=== PATIENT | male | born 1985 | race Two or more races ===

== ENCOUNTER 2017-03-13 14:53 | Emergency (ER) | payer MEDICAID ==
[~2017-03-13] VITALS: Ht 175.3 cm; Wt 81.6 kg
[2017-03-13 16:32] VITALS: BP 126/70
== END 2017-03-13 16:34 | disposition home or self-care (01) ==
LOC: ER 14:57
DX: S51.812A Laceration without foreign body of left forearm, initial encounter (principal); W22.8XXA Striking against or struck by other objects, initial encounter; Y93.89 Activity, other specified; Y92.89 Other specified places as the place of occurrence of the external cause; Y99.8 Other external cause status
CPT/HCPCS: A4606; A6402; J3490; Z7610

== ENCOUNTER 2021-06-25 09:14 | Emergency (ER) | payer MEDICAID, OTHER ==
[~2021-06-25] VITALS: Ht 175.3 cm; Wt 79.4 kg
[2021-06-25 09:24] VITALS: BP 116/79
--- NOTE | 2021-06-25 09:36 | NUR ---
SEEN AND EVALUATED BY DR BEE, STABLE VITALS. D/C TO [facility] IN STABLE CONDITION.
== END 2021-06-25 09:46 ==
LOC: ER 09:39
DX: F11.23 Opioid dependence with withdrawal (principal)